=== PATIENT | female | born 1990 | race Hispanic/Latino ===

== ENCOUNTER 2021-02-19 16:36 | Emergency (ER) | payer OTHER, SELFPAY ==
[2021-02-19] MEDS ORDERED: Proparacaine 0.5% Opth 15 ML BOT ONE (17:25)
[2021-02-19] MEDS ORDERED: Fluorescein Opthalmic Strip ONE (17:25)
== END 2021-02-19 18:04 | disposition home or self-care (01) ==
LOC: ERS 16:36
DX: L20.9 Atopic dermatitis, unspecified (principal); R59.1 Generalized enlarged lymph nodes
CPT/HCPCS: 99282

== ENCOUNTER 2021-08-21 21:57 | Emergency (ER) | payer SELFPAY ==
[2021-08-22] MEDS ORDERED: Lidocaine 1% PF 5 ML VIAL ONE (00:09)
[2021-08-22] MEDS ORDERED: Bacitracin 1 PK ONE (00:40)
== END 2021-08-22 00:46 | disposition home or self-care (01) ==
LOC: ERS 21:57
DX: L03.032 Cellulitis of left toe (principal)
CPT/HCPCS: 10060